=== PATIENT | male | born 1970 | race African-American/Black ===

== ENCOUNTER 2016-11-15 13:37 | Emergency (ER) | payer OTHER ==
[~2016-11-15] VITALS: Ht 195.6 cm; Wt 124.7 kg
[~2016-11-15 13:37] MED LIST: AMLODIPINE BES2.5 MG PO; NAPROXEN500 M1 PO; NAPROXEN500 MG PO; NORVASC 5MG TAB5 MG PO
--- NOTE | 2016-11-15 15:01 | ED GENERAL ADULT ---
History of Present Illness General Chief Complaint: General Adult Stated Complaint: FEVER,COUGH,CONGESTION,N/V/D Source: patient Exam Limitations: no limitations Vital Signs & Intake/Output Vital Signs & Intake/Output Vital Signs Date Time Temp Pulse Resp B/P Pulse O2 O2 Flow FiO2 Ox Delivery Rate 11/15 1639 97.8 109 20 144/66 98 Room Air 11/15 1341 97.1 89 20 131/88 98 Room Air Allergies Coded Allergies: NO KNOWN ALLERGIES (11/21/11) Reconcile Medications Amlodipine (Norvasc 5MG Tab) 5 MG TAB 1 TAB PO DAILY BP (Reported) Benzonatate (Tessalon Perle) 100 MG CAPSULE 1 CAP PO TID PRN COUGH Lisinopril/Hydrochlorothiazide (Lisinopril-Hctz 20-12.5 MG Tab) 20 MG-12.5 MG TABLET 1 TAB PO DAILY HTN (Reported) Mometasone Furoate (Nasonex) 50 MCG SPRAY.PUMP 2 SPRAY NASB DAILY PRN CONGESTION Naproxen 500 MG TAB 1 TAB PO BID PAIN Triage Note: PT C/O FEVER, COUGH, CONGESTION N/V/D SINCE SUNDAY. PT DENIES ABDOMINAL PAIN. PT STATES UNABLE TO KEEP FOOD DOWN BUT WATER IS OK Triage Nurses Notes Reviewed? yes Onset: Gradual Duration: day(s): (3) Timing: remote history Injury Environment: home Severity: moderate Severity Numbers: 7 No Modifying Factors: none HPI: Patient is a 46-year-old male with history of hypertension presenting to the emergency department with chief complaint of upper respiratory congestion, intermittently productive cough, coughing to the point of emesis 2 episodes. 2 episodes of diarrhea. No blood in the stool or vomit. He reports mom it was more phlegm in nature. Denies any fevers or chills. Reports malaise. Denies any recent travel or recent antibiotic use. was sick with similar symptoms. Symptoms currently moderate. (FRANK TAPIA,CAMERON) Past History Travel History Traveled to [place] past 21 day No Medical History Any Pertinent Medical History? see below for history Cardiovascular: hypertension Musculoskeletal: ACL MCL RUPTURE L KNEE Surgical History Surgical History: L KNEE ACL RECONSTRUCTION Psychosocial History What is your primary language Czech Tobacco Use: Current Daily Use Daily Tobacco Use Amount/Type: => 5 Cigarettes daily ETOH Use: occasional use Illicit Drug Use: denies illicit drug use Family History Hx Contributory? No (CAMERON FUENTES) Review of Systems Review of Systems Constitutional: Reports: malaise. Comments Review of systems: See HPI, All other systems negative. Constitutional, no weight loss HEENT: No visual changes no sore throat Cardiovascular: No chest pain ,palpitation , orthopnea or ankle swelling Skin, no jaundice no rashes Respiratory: No dyspnea or hemoptysis GI: POS N/V/D : No dysuria No hematuria Muscle skeletal: no back pain, no neck pain, Neurologic: No numbness no confusion NO PENA Psych: No stress anxiety or depression,. Heme/endocrine: No bruising no bleeding no polyuria or polydipsia Immunology: No splenectomy or history of AIDS (CAMERON FUENTES) Physical Exam Physical Exam General Appearance: well developed/nourished, no apparent distress, alert, awake , comfortable Comments: Well-developed well-nourished person in no acute distress HEENT: extraocular motion intact, no nystagmus. Pupils equally round and reactive to light and accommodation. Nose is atraumatic. External auditory canal and SMALL AMT OF FLUID BEHIND BUT Tympanic membranes clear. Pharynx is mildly erythematous, no exudate. No swelling or edema. Neck: Supple, no lymphadenopathy, normal range of motion without pain or tenderness Back: Nontender, no CVA tenderness. Cardiovascular: Regular rate and rhythms no murmurs rubs or gallops, normal JVP Respiratory: Chest nontender. No respiratory distress.breath sounds DIMINISHED to auscultation bilaterally Abdomen: Soft, nontender nondistended, no appreciable organomegaly. Normal bowel sounds. No ascites, NO REBOUND OR GAURDING. Extremity: No edema Neuro: Alert oriented x3 Skin: No appreciable rash on exposed skin, skin is warm and dry. Psych: Mood and affect is normal, memory and judgment is normal. Core Measures ACS in differential dx? No CVA/TIA Diagnosis: No Severe Sepsis Present: No Septic Shock Present: No (CAMERON FUENTES) Progress Differential Diagnoses I considered the following diagnoses in my evaluation of the patient: Upper respiratory infection, bronchitis, pneumonia, viral syndrome, influenza, dehydration, gastroenteritis Plan of Care: Orders Procedure Date/time Status RAPID VIRAL INFLUENZA A 11/15 1530 Complete LIPASE 11/15 1530 Complete COMPREHENSIVE METABOLIC PANEL 11/15 1530 Complete CBC WITHOUT DIFFERENTIAL 11/15 1530 Complete AMYLASE 11/15 1530 Complete Laboratory Tests 11/15/16 1556: Anion Gap 12, Estimated GFR 50 L, BUN/Creatinine Ratio 7.3, Glucose 92, Calcium 10.3 H, Total Bilirubin 0.8, AST 36, ALT 65, Alkaline Phosphatase 71, Total Protein 8.6 H, Albumin 4.7, Globulin 3.9, Albumin/Globulin Ratio 1.2, Amylase 119 H, Lipase 217, CBC w Diff NO MAN DIFF REQ, RBC 5.94, MCV 86.5, MCH 27.4, RDW 14.0, MPV 8.5, Gran % 52.3, Lymphocytes % 27.6, Monocytes % 14.5 H, Eosinophils % 4.4, Basophils % 1.2, Absolute Granulocytes 3.5, Absolute Lymphocytes 1.9, Absolute Monocytes 1.0 H, Absolute Eosinophils 0.3, Absolute Basophils 0.1, PUBS MCHC 31.7 L Initial ED EKG: none (CAMERON FUENTES) Departure Departure Time of Disposition: 1627 Disposition: HOME OR SELF CARE Condition: Stable Clinical Impression Primary Impression: Viral syndrome Referrals: PRAVIN AGUSTIN MD (PCP/Family) Additional Instructions: Follow-up with a primary care physician call TO MAKE appointment. Increase fluids. He uses nasal excess prescribed for congestion. Take Tessalon Perles as prescribed for cough. Return for worsening symptoms or concerns. Departure Forms: Customer Survey General Discharge Information Prescriptions: Current Visit Scripts Mometasone Furoate (Nasonex) 2 SPRAY NASB DAILY PRN CONGESTION #1 INHAL Benzonatate (Tessalon Perle) 1 CAP PO TID PRN COUGH #20 CAP (CAMERON FUENTES) PA/[employer]PARTMENT SUPERVISOR Co-Sign Statement Statement: ED Attending supervision documentation- [] I saw and evaluated the patient. I have also reviewed all the pertinent lab results and diagnostic results. I agree with the findings and the plan of care as documented in the PA's/[employer] DEPARTMENT SUPERVISOR's documentation. [X] I have reviewed the ED Record and agree with the PA's/[employer]ER[employer] DEPARTMENT SUPERVISOR's documentation. [] Additions or exceptions (if any) to the PAs/[employer]ER[employer] DEPARTMENT SUPERVISOR's note and plan are summarized below: [] (LUDWIG COPELAND DO) Critical Care Note Critical Care Note Critical Care Time: non-applicable (FRANK TAPIA,CAMERON)
[2016-11-15] MEDS ORDERED: LISINOPRIL-HCT1 EACH PO (15:55)
[2016-11-15 16:04] LABS: ABSOLUTE BASOPHIL COUNT 0.1 /CUMM (0.0-0.2); ABSOLUTE LYMPH COUNT 1.9 /CUMM (1.2-3.4); BASOPHIL % 1.2 % (0.0-2.0)
[2016-11-15 16:08] LABS: ABSOLUTE EOSINOPHIL COUNT 0.3 /CUMM (0.0-0.7); ABSOLUTE GRANULOCYTE CT 3.5 /CUMM (1.4-6.5); EOSINOPHIL % 4.4 % (0-5); GRANULOCYTE % 52.3 % (42.2-75.2); HEMATOCRIT 51.3 % (42-52); MEAN CORPUSCULAR HGB 27.4 PG (27.0-31.0); MEAN CORPUSCULAR HGB CONC 31.7 G/DL (33.0-37.0); MEAN CORPUSCULAR VOLUME 86.5 FL (80.0-94.0); MEAN PLATELET VOLUME 8.5 FL (7.4-10.4); PLATELET COUNT 262 /CUMM (130-400); RED BLOOD CELL CT 5.94 /CUMM (4.70-6.10); WHITE BLOOD CELL COUNT 6.8 /CUMM (4.8-10.8)
[2016-11-15] MEDS ORDERED: NASONEX17 GM NASB (16:30)
[2016-11-15] MEDS ORDERED: TESSALON PERLE100 M1 PO (16:30)
[2016-11-15 16:39] VITALS: BP 144/66
== END 2016-11-15 16:37 ==
LOC: ERH 13:37
PROVIDERS: Physician Assistant
DX: B34.9 Viral infection, unspecified (principal)
CPT/HCPCS: 87804; 87804-59